=== PATIENT | female | born 1950 | race Caucasian/White ===

== ENCOUNTER 2024-01-01 12:09 | Observation (INO) | payer MEDICARE, SELFPAY ==
[2024-01-01] VITALS (14 sets, daily range): BP systolic 137–213; BP diastolic 72–102; PULSE 74–98; RESP 12–22; TEMP 35.9–37.1; O2SAT 83–99; BMI 34.3; BMI 33.0
--- NOTE | 2024-01-01 12:27 | CT_ITS ---
STUDY: CT BRAIN WITHOUT CONTRAST REASON FOR EXAM: Female, 73 years old. altered mental status RADIATION DOSAGE (If Supplied By Facility): CTDIvol = ( 44.99 ) mGy, DLP = ( 796.11 ) mGycm TECHNIQUE: Transaxial CT imaging of the brain was performed without administration of intravenous contrast material. Individualized dose optimization techniques were used for this CT. COMPARISON: None. FINDINGS: Normal soft tissue structures. Normal calvarium. There is moderate cerebral atrophy with widening of the extra-axial spaces and ventricular dilatation. There are areas of decreased attenuation within the white matter tracts of the supratentorial brain, consistent with microvascular disease changes. Normal basal ganglia and thalami. Normal brainstem. Normal cerebellum. There is no intracranial hemorrhage. There are no findings of an acute ischemic infarction. Normal visualized paranasal sinuses. CT/Brain/Head without Contrast IMPRESSION: Chronic involutional changes of the brain. Electronically Signed: Miguel Hewitt MD at 14:26 EDT ,
--- NOTE | 2024-01-01 12:27 | CT_ITS ---
EXAM: CT ABDOMEN AND PELVIS WITHOUT INTRAVENOUS CONTRAST CLINICAL INDICATION: diffuse abd pain, confused TECHNIQUE: Helically acquired images were obtained of the abdomen and pelvis without intravenous contrast. This CT exam was performed using one or more of the following dose reduction techniques: automated exposure control, adjustment of the mA and/or kV according to patient size, and/or use of iterative reconstruction technique. COMPARISON: No relevant prior studies available. FINDINGS: LOWER THORAX: Normal. Lung bases are clear. No cardiomegaly. No pericardial effusion. ABDOMEN: LIVER: Normal. Homogeneous. GALLBLADDER AND BILE DUCTS: Cholecystectomy clips are in place. PANCREAS: Normal. No focal cystic mass. SPLEEN: Normal. Normal size without focal cystic or solid mass. ADRENALS: Normal. No nodules. KIDNEYS AND URETERS: Normal. No hydronephrosis. STOMACH AND BOWEL: Normal. No bowel distention. No focal inflammatory change. PELVIS: APPENDIX: No evidence of acute appendicitis. BLADDER: Normal. REPRODUCTIVE: Hysterectomy noted. ABDOMEN and PELVIS: INTRAPERITONEAL SPACE: Normal. No ascites or other fluid collection. No free air. BONES/JOINTS: No suspicious lytic or blastic abnormality. SOFT TISSUES: Small fat-containing umbilical hernia is present. VASCULATURE: Normal. Abdominal aorta is non-dilated. LYMPH NODES: Normal. No enlarged lymph nodes. CT/Abdomen/Pelvis without Cont IMPRESSION: No acute abdominal or pelvic abnormality. Electronically Signed: Raman See MD at 14:20 EDT Reading Location ID and State: [facility] / [place] Tel , Service support ,
--- NOTE | 2024-01-01 12:29 | EX.ED.DYSGE1 ---
HPI History of Present Illness Chief Complaint: Alt LOC Informant: patient and EMS Narrative Narrative: 66-year-old female arrives by EMS without any family, unknown identifying information, answers every question with what we assume is her first name, Nazia. She does answer yes that she is in pain to many questions as well although she initially said no when I asked her if she was in pain. Staff states she is very confused. Initially the call went out from a neighbor as possible panic attack which apparently she has had before but we do not know anything else about her right now. She cannot converse but she answers in one-word sentences. When asked about abdominal pain she states yes, when asking about pain in her shoulder as I gently touch it she states yes, when I ask her about pain at the tip of her nose, she states don't. PFSH PFSH Medical History unable to obtain unable to obtain Home Medications buspirone 5 mg tablet 5 mg PO TID 01/01/24 [History Last Taken Unknown] cyclobenzaprine 10 mg tablet 10 mg PO TID 01/01/24 [History Last Taken Unknown] potassium chloride 20 mEq tablet,extended release(part/cryst) (Klor-Con M) 20 meq PO DAILY 01/01/24 [History Last Taken Unknown] pregabalin 200 mg capsule 200 mg PO TID 01/01/24 [History Last Taken Unknown] quetiapine 100 mg tablet 100 mg PO QHS 01/01/24 [History Last Taken Unknown] rivaroxaban 20 mg tablet (Xarelto) 20 mg PO DAILY 01/01/24 [History Last Taken Unknown] venlafaxine 150 mg capsule,extended release 24 hr 150 mg PO DAILY 01/01/24 [History Last Taken Unknown] Allergy/AdvReac Type Severity Reaction Status Date / Time No Known Allergies Allergy Verified 01/01/24 12:21 Social History Smoking Status: Unknown if ever smoked ROS ROS ED Review of Systems ROS Unobtainable: due to mental status EXAM Physical Exam Const Vital Signs: 01/01/24 12:10 01/01/24 12:18 01/01/24 12:27 Temperature 96.6 F L 96.6 F L Temperature Source Temporal Temporal Pulse Rate 98 96 97 Respiratory Rate 22 H 19 H 20 H Blood Pressure 187/102 H 187/102 H 180/87 H Blood Pressure Mean 130 130 118 Pulse Ox 97 96 99 Oxygen Delivery Method Room Air Room Air Room Air 01/01/24 13:18 01/01/24 14:00 01/01/24 14:00 Temperature 97.8 F 98 F Temperature Source Temporal Temporal Pulse Rate 90 96 96 Respiratory Rate 12 20 H 18 Blood Pressure 176/80 H 162/87 H 162/87 H Blood Pressure Mean 112 112 112 Pulse Ox 99 99 99 Oxygen Delivery Method Room Air Room Air Nasal Cannula 01/01/24 15:00 Temperature Temperature Source Pulse Rate 91 Respiratory Rate 16 Blood Pressure 182/94 H Blood Pressure Mean 123 Pulse Ox 98 Oxygen Delivery Method Room Air Positive well nourished, well developed and obese General Appearance ED: well developed and NAD Nutritional Appearance: obese HEENT Reports moist mucous membranes normocephalic and atraumatic Eyes PERRL and EOMs intact bilaterally Neck full ROM and supple Chest Wall inspection of chest normal Resp normal respiratory effort and clear to auscultation bilaterally Cardio regular rate, regular rhythm and no murmurs Rate: Negative for tachycardic GI non-distended GI Narrative: Diffuse tenderness Auscultation: normoactive bowel sounds Palpation: soft Extremity Extremity Narrative: Ecchymosis right hip but no tenderness there. Tender at the left hip greater trochanter. Painful internal and external passive rotation of the left hip. No deformity or shortening. Able to move it on her own actively all joints all 4 extremities including the left hip. Pelvis stable to AP compression. No other major signs of trauma. General Extremety ED: Yes tenderness; Negative for edema or pulses abnormal General Extremity: Negative for edema or pulses abnormal Neuro CN's II-XII intact bilaterally and no sensory deficits noted Neuro Narrative: Inappropriate answers speaking in one-word sentences, ? expressive aphasia. Moving all 4 extremities equally, she can hold them up some with generalized symmetric weakness. Sensorium / Orientation: awake, alert and orientation impaired Motor Exam: strength 5/5 throughout Skin no rashes or lesions noted and no wounds NIHSS NIHSS Initial: 1a Level of Consciousness: 0 1b LOC Questions (Score 2 if aphasic/stupor): 2 1c LOC Commands (Only score 1st attempt): 0 2 Best Gaze (If aphasic, use reflexive mvmts.): 0 3 Visual: 0 4 Facial Palsy: 0 5 Motor Arm Right (UN = amputation/fusion): 1 5 Motor Arm Left: 1 6 Motor Leg Right: 1 6 Motor Leg Left: 1 7 Limb ataxia (Only + if out of proportion): 0 8 Sensory (Aphasia/stupor=0 or 1, coma=2): 0 9 Best Language: 2 10 Dysarthria (mute, coma=2, intubated=UN): 0 11 Extinction and Inattention (only scored if +): 0 Total Score: 8 MDM MDM MDM Narrative Medical decision making narrative: The patient was made a Aleksandra Childers initially until we found out who she was. We then were able to determine that she was recently admitted to the hospital and was discharged 4 days ago or so. We are not able to merge her medical records so I had to look this up using her other medical record. In doing this, it was determined that she physically was admitted to the ICU due to overflow although she was not a critical care patient, admitted for pneumonia and hypoxemia, asthmatic bronchitis, and the nurse who was caring for her is working today. She came to the ER and saw the patient and indicates that this is very different mental status than she had a couple days ago. ABG was the first lab results are returned, is basically consistent with a an acute respiratory alkalosis consistent with hyperventilation. Her lungs are clear so I do not think she needs a nebulizer treatment right now, doing so may make her more anxious and exacerbate the imbalance. Patient's workup is largely unremarkable. Patient has a wide differential for this issue. She seems encephalopathic but keeps complaining of abdominal pain. [employer] issues, intra-abdominal issues not excluding mesenteric ischemia, infections, metabolic derangement. Other than hypokalemia she has no other evidence of a metabolic derangement or anion gap elevation. The hypokalemia could be due to acute respiratory alkalosis and resultant shift. I will have this repeated at some point. Her blood pressure was significantly high, certainly considering some type of possible acute [employer] insult, however on repeat without treating it it is 162/87 which is more reassuring. CT of the head images are reviewed as well as the result which I agree with, it is negative for any acute. CT images of the abdomen/pelvis I reviewed and the results which I agree with, it is negative for any acute. I did this noncontrast in order to get a quick scan without having to wait for renal function to return. Chest x-ray 1 view on my interpretation shows no signs of pneumonia, urinalysis shows no sign of acute infection just starvation ketosis, and a toxicology screen is positive only for methadone which she is on. I do not think her being on a lower dose than normal which was determined to be 20, she is currently on 10 to be discharged from the hospital, would do this, but may explain why she is in more diffuse pain. History & Record Review Additional record(s) reviewed:: Prior inpatient record and Prior ED visit Lab Data Attestation: I reviewed the patient's lab results. Labs: Laboratory Results - last 24 hr 01/01/24 01/01/24 12:45 12:55 WBC 6.8 RBC 4.53 Hgb 11.4 L Hct 35.2 L MCV 77.7 L MCH 25.2 L MCHC 32.4 RDW Std Deviation 44.7 H RDW Coeff of Manuel 16.1 H Plt Count 233 MPV 12.9 H Immature Gran % (Auto) 1.300 H Neut % (Auto) 71.4 H Lymph % (Auto) 18.8 L Chester % (Auto) 8.1 Eos % (Auto) 0.1 Baso % (Auto) 0.3 Absolute Neuts (auto) 4.9 Absolute Lymphs (auto) 1.28 Nucleated RBC % 0 Sodium 140 Potassium 3.0 L Chloride 106 Carbon Dioxide 22.0 Anion Gap 12 BUN 16 Creatinine 0.79 Estim Creat Clear Calc 69.34 Est GFR (MDRD) Af Amer 92 Est GFR (MDRD) Non-Af 76 BUN/Creatinine Ratio 20.3 H Glucose 123 H Lactic Acid 1.3 Calcium 8.8 Total Bilirubin 0.80 AST 24 ALT 31 Alkaline Phosphatase 201 H Troponin I High Sens 13 Total Protein 6.6 Albumin 3.2 Globulin 3.4 Albumin/Globulin Ratio 0.9 Lipase 31 Urine Color Yellow Urine Clarity Sl. Cloudy Urine pH 6.5 Ur Specific Foster 1.015 Urine Protein 30 H Urine Glucose (UA) Normal Urine Ketones 150 A* Urine Occult Blood Negative Urine Nitrite Negative Urine Bilirubin Negative Urine Urobilinogen 1 H Ur Leukocyte Esterase Negative Urine RBC 0 SEEN Urine WBC 0 SEEN Ur Squamous Epith Cells 0-5 SEEN Urine Bacteria 0 SEEN Urine Mucus 0 SEEN Urine Opiates Screen NEGATIVE Urine Methadone Screen POSITIVE H Ur Barbiturates Screen NEGATIVE Ur Phencyclidine Scrn NEGATIVE Ur Amphetamines Screen NEGATIVE MDMA (Ecstasy) Screen NEGATIVE U Benzodiazepines Scrn NEGATIVE Urine Cocaine Screen NEGATIVE U Cannabinoids Screen NEGATIVE Ur Drug Screen Comment Ethyl Alcohol 4.0 ABG Data ABG results: ABG 01/01/24 12:49 Specimen Type ART Sample Site L Radial pH 7.66 H* Bicarbonate Actual 20.8 L Total CO2 21 Base Excess 0 O2 Saturation 99 ABG pCO2 18.6 L* ABG pO2 85 O2 Delivery Device Room Air Vent Mode Not entered Crit Call To/Read Back Yes Blood Gas Notified Whom bb Blood Gas Notified Time 12:51:15 Radiography Diagnostic Testing: Clinical Impression(s) from Imaging Studies Abdomen/Pelvis CT 01/01/24 12:27 IMPRESSION: No acute abdominal or pelvic abnormality. Electronically Signed: Raman See MD at 14:20 EDT , Brain CT 01/01/24 12:27 IMPRESSION: Chronic involutional changes of the brain. Electronically Signed: Miguel Hewitt MD at 14:26 EDT , Chest X-Ray 01/01/24 13:44 IMPRESSION: No acute process Electronically Signed: Miguel Hewitt MD at 14:11 EDT , Hip/Pelvis X-Ray 01/01/24 13:44 IMPRESSION: 1. No demonstrated fracture of the pelvis and bilateral hips. Electronically Signed: Miguel Hewitt MD at 14:25 EDT , Rhythm Strip Rhythm Strip: Sinus Rhythm Rate: 95 Ectopy: None EKG Initial EKG: Attestation: I personally reviewed and interpreted this EKG as follows: Interpretation: Sinus Rhythm and No Acute Injury Pattern Discharge Plan Triage Chief Complaint: Alt LOC ED Provider: Ancelmo Silverio Dx/Rx/DC Orders Clinical Impression: Diffuse pain, Acute encephalopathy, Acute hypokalemia Prescriptions: No Action cyclobenzaprine 10 mg tablet 10 mg PO TID venlafaxine 150 mg capsule,extended release 24hr 150 mg PO DAILY quetiapine 100 mg tablet 100 mg PO QHS pregabalin 200 mg capsule 200 mg PO TID buspirone 5 mg tablet 5 mg PO TID Xarelto 20 mg tablet 20 mg PO DAILY Rx Instructions: must administer with evening meal potassium chloride [Klor-Con M20] 20 mEq tablet,ER particles/crystals 20 meq PO DAILY Primary Care Provider: Claire Christian Referrals: Claire Chritsian, [facility] [Primary Care Provider] - Disposition Disposition: Acute Care Hospital [facility] Stroke Documentation Questions Stroke Team Activated: No (Nonlateralizing neurologic symptoms, not initially thought to be acute CVA) IV Thrombolytic Administered: No (Last known well unknown)
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
[2024-01-01 12:54] LABS: Base Excess 0 mmol/L (-2 to +2); Bicarbonate 20.8 mmol/L (22-26); Blood Gas Specimen Type ART; Mode Not entered; O2 Delivery Device Room Air; PO2 85 mmHG (75-100); SITE L Radial; SO2 99 % (95-99); Time Given 12:51:15; Total Carbon Dioxide 21 mmol/L; pCO2 18.6 mmHg (35-45); pH 7.66 (7.35-7.45)
[2024-01-01 13:02] LABS: Absolute Lymphocyte Count 1.28 X10^3/uL (0.83-4.51); Absolute Neutrophil Count 4.9 X10^3/uL (2.0-7.7); Basophil# 0.02 X10^3/uL; Basophil% 0.3 % (0-1); Eosinophil# 0.01 X10^3/uL; Eosinophils% 0.1 % (0-5); Hematocrit 35.2 % (37-47); Hemoglobin 11.4 g/dL (12.0-15.0); Lymphocyte # 1.28 X10^3/ul (0.83-4.51); Lymphocyte % 18.8 % (19-41); Mean Corp Hgb Conc 32.4 g/dL (32-36); Mean Corpuscular Hgb 25.2 pg (27.0-32.0); Mean Corpuscular Volume 77.7 fL (81-99); Mean Platelet Vol. 12.9 fl (6.2-12.0); Monocyte# 0.55 X10^3/uL; Monocyte% 8.1 % (0-10); NRBC Flagged by Analyzer 0 % (0-5); Neutrophil # 4.86 X10^3/uL (2.7-7.7); Neutrophil % 71.4 % (47-70); Platelet Count 233 K/mm3 (150-450); RBC Distribution Width CV 16.1 % (11.6-14.6); RBC Distribution Width SD 44.7 fl (35.1-43.9); Red Blood Count 4.53 M/mm3 (4.2-5.4); White Blood Count 6.8 K/mm3 (4.4-11.0)
[2024-01-01 13:03] LABS: Bacteria 0 SEEN /hpf (None Seen); Mucous, Urine 0 SEEN /hpf (<or=2+); Red Blood Cells-Urine 0 SEEN /hpf (0-5); White Blood Cells 0 SEEN /hpf (0-5)
[2024-01-01 13:08] LABS: Color, Urine Yellow (Yellow); Glucose, Dipstick Normal (Normal); Leukocyte Esterase-Dipstick Negative /ul (Negative); Nitrite-Dipstick Negative (Negative); Occult Blood-Urine Negative /ul (Negative); Protein-Dipstick 30 mg/dl (Negative); Specific Gravity, Urine 1.015 (1.002-1.030); Urine Bilirubin Dipstick Negative (Negative); Urine Clarity Sl. Cloudy (Clear); Urine Urobilinogen 1 mg/dl (Normal); Urine pH 6.5 (5.0 - 8.0)
[2024-01-01 13:13] LABS: Ketone-Dipstick 150 mg/dl (Negative)
[2024-01-01 13:15] LABS: Amphetamine Urine VISTA NEGATIVE (<1000 ng/mL); Barbiturate Urine VISTA NEGATIVE (< 200 ng/mL); Benzodiazepine Urine VISTA NEGATIVE (< 200 ng/mL); Cocaine Urine VISTA NEGATIVE (< 300 ng/mL); Ecstacy Urine VISTA NEGATIVE (< 500 ng/mL); Methadone Urine VISTA POSITIVE (< 300 ng/mL); PCP Urine VISTA NEGATIVE (< 25 ng/mL); THC Urine VISTA NEGATIVE (< 50 ng/mL); Vista UDS pH Range 6
[2024-01-01 13:18] LABS: ALB/GLOB Ratio 0.9 RATIO (0.9-2.4); AST(SGOT) 24 U/L (15-37); Alanine Aminotransfer ALT/SGPT 31 U/L (13-56); Albumin, Serum 3.2 g/dL (3.2-5.0); Alkaline Phosphatase 201 U/L (45-117); Anion Gap 12 (5-15); BUN 16 mg/dL (7-18); BUN/Creat Ratio 20.3 RATIO (10-20); Calcium,Total 8.8 mg/dL (8.5-10.1); Chloride 106 mmol/L (98-107); Creatinine, Serum 0.79 mg/dL (0.55-1.02); EST Glomerular Filtration Rate 76 mL/min (>60); Est Glom Filt Rate - Afr Amer 92 mL/min (>60); Estimated Creatinine Clearance 69.34 ml/min; Globulin 3.4 g/dL (2.2-4.2); Glucose 123 mg/dL (74-106); Lipase 31 U/L (13-75); Protein, Total 6.6 g/dL (6.4-8.2); Sodium Level 140 mmol/L (136-145); Troponin-I HS 13 pg/mL (3.0-54.0)
[2024-01-01 13:20] LABS: Squamous Epithelial Cells - UA 0-5 SEEN /hpf (5-10)
[2024-01-01 13:21] LABS: Lactic Acid 1.3 mmol/L (0.4-1.9)
--- NOTE | 2024-01-01 13:44 | RAD_ITS ---
STUDY: X-RAY CHEST REASON FOR EXAM: Female, 73 years old. sob TECHNIQUE: Single AP portable view of the chest. COMPARISON: December 28, 2023 FINDINGS: 1. Stable right chest port and catheter 2. No demonstrated consolidation or infiltrates 3. Chronic interstitial thickening and scarring of both lungs 4. No pleural effusion 5. Top normal heart size 6. Stable mediastinum and osseous structures. There is no demonstrated abnormality of the visualized soft tissue structures of the upper abdomen. RAD/Chest 1 View (Portable) IMPRESSION: No acute process Electronically Signed: Miguel Hewitt MD at 14:11 EDT ,
--- NOTE | 2024-01-01 13:44 | RAD_ITS ---
STUDY: X-RAY - PELVIS AND BILATERAL HIPS REASON FOR EXAM: Female, 73 years old. pain, ? fall TECHNIQUE: 6 total images AP view of the pelvis.? 2 views of the right hip, and 2 views of the left hip were obtained. COMPARISON: CT of abdomen and pelvis dated January 01, 2024 FINDINGS: There is a non-specific bowel gas pattern. Normal visualized soft tissue structures. No visualized acute fracture or displaced bony fragments. Normal bilateral iliac wings, sacroiliac joints and visualized sacrum. Normal bilateral superior and inferior pubic rami. Normal pubic symphysis. Normal bilateral ischial tuberosities. Normal visualized right femoral head. Normal right acetabulum. There is mild articular joint space narrowing of the right hip. Normal visualized left femoral head. Normal left acetabulum. There is mild articular joint space narrowing of the left hip. RAD/Hips B/L min 2 views w/ Pelvis IMPRESSION: 1. No demonstrated fracture of the pelvis and bilateral hips. Electronically Signed: Miguel Hewitt MD at 14:25 EDT ,
--- NOTE | 2024-01-01 14:11 | ED.RN ---
PT CARLA. COMPLAINS OF 10 OUT OF [address] ASHRAF. ORDERS RECIEVED
[2024-01-01] MEDS: fentaNYL 100 MCG/2 ML Ampul 50 MCG IV (14:12)
--- NOTE | 2024-01-01 15:21 | HP.PCM.HOS_ITS ---
HPI - General General Date of Admission: 01/01/24 Date of Service: 01/01/24 Chief Complaint: Altered mental status. HPI Narrative RICHARDSON CRUM, is a 73 F with a past medical history of obesity; with a BMI of 34.3 this admission, depression with anxiety, RLS, history of X; on Xarelto, history of cirrhosis, osteoarthritis; on chronic methadone and recent admission here approximately 5 days ago for treatment of pneumonia who presents to [facility] ER with altered mental status. Ms. Crum is not a reliable historian at this time so information was gathered from chart, medical staff and computer. According to the records the patient was found outside today confused by one of her neighbors who then activated EMS because she was not acting like herself. The patient can only speak in one-word sentences and when asked any questions she answers with Nazia. She does answer yes to the being in pain but she is having difficulty communicating exactly what the pain is coming from. There is no report of fever, chills, nausea or vomiting but a nurse that saw her during her last admission here 1 week ago says she is markedly different from her baseline mental status with the ER physician concern for possible TIA/C VA. In the ER she was noted to have an elevated initial blood pressure of 187/102 mmHg along with suspected mild expressive dysarthric speech complicated by urine drug screen positive only for methadone but with patient not lateralizing and moving all 4 extremities along with metabolic alkalosis with pH of 7.66/pCO2 18.6/pO2 85/bicarbonate 20.8 on RA present on admission and hypokalemia of 3 mmol/L present on admission and she was then admitted to the CDU under observation status for ongoing care for stay that is expected to be less than 48 hours. [facility] Medical History Cirrhosis Migraines Medical History unable to obtain Home Medications buspirone 5 mg tablet 5 mg PO TID 01/01/24 [History Last Taken Unknown] cyclobenzaprine 10 mg tablet 10 mg PO TID 01/01/24 [History Last Taken Unknown] potassium chloride 20 mEq tablet,extended release(part/cryst) (Klor-Con M) 20 meq PO DAILY 01/01/24 [History Last Taken Unknown] pregabalin 200 mg capsule 200 mg PO TID 01/01/24 [History Last Taken Unknown] quetiapine 100 mg tablet 100 mg PO QHS 01/01/24 [History Last Taken Unknown] rivaroxaban 20 mg tablet (Xarelto) 20 mg PO DAILY 01/01/24 [History Last Taken Unknown] venlafaxine 150 mg capsule,extended release 24 hr 150 mg PO DAILY 01/01/24 [History Last Taken Unknown] Allergy/AdvReac Type Severity Reaction Status Date / Time No Known Allergies Allergy Verified 01/01/24 12:21 Social History housing: apartment Smoking Status: Never smoker ROS ROS Narrative Full review of systems cannot be completed at this time due to patient confusion as noted above in HPI. Vital Signs Vital Signs Vital Signs: 01/01/24 12:10 01/01/24 12:18 01/01/24 12:27 Temperature 96.6 F L 96.6 F L Temperature Source Temporal Temporal Pulse Rate 98 96 97 Respiratory Rate 22 H 19 H 20 H Blood Pressure 187/102 H 187/102 H 180/87 H Blood Pressure Mean 130 130 118 Pulse Ox 97 96 99 Oxygen Delivery Method Room Air Room Air Room Air 01/01/24 13:18 01/01/24 14:00 01/01/24 14:00 Temperature 97.8 F 98 F Temperature Source Temporal Temporal Pulse Rate 90 96 96 Respiratory Rate 12 20 H 18 Blood Pressure 176/80 H 162/87 H 162/87 H Blood Pressure Mean 112 112 112 Pulse Ox 99 99 99 Oxygen Delivery Method Room Air Room Air Nasal Cannula 01/01/24 15:00 Temperature Temperature Source Pulse Rate 91 Respiratory Rate 16 Blood Pressure 182/94 H Blood Pressure Mean 123 Pulse Ox 98 Oxygen Delivery Method Room Air Weight Weight: 199 lb 15.348 oz Body Mass Index (BMI) 34.3 Physical Exam Const alert Constitutional Narrative: Obese and confused. Orientation / Consciousness: confused and disoriented HEENT normocephalic, head/scalp atraumatic and hearing grossly normal bilaterally HEENT Narrative: Mucous membranes dry. Eyes PERRL and EOMs intact bilaterally Neck no lymphadenopathy and supple Resp normal respiratory effort, no retractions, no use of accessory muscles and clear to auscultation bilaterally Cardio regular rate and regular rhythm GI normal to inspection, nondistended, normoactive bowel sounds, soft to palpation, non-tender and non-distended Extremity normal to inspection and full ROM Skin Skin Narrative: Patient has no evidence of jaundice or rash. Neuro CN's II-XII intact bilaterally and moves all extremities Sensorium / Orientation: awake, alert and oriented to person Motor Exam: strength 5/5 throughout Psych Mood & Affect: anxious Results Medical Records Data Attestation: I reviewed the patient's medical records Lab / Micro Data Attestation: I reviewed the patient's lab results. 01/01/24 12:45 01/01/24 16:00 Labs: Laboratory Results - last 24 hr 01/01/24 12:45: WBC 6.8, RBC 4.53, Hgb 11.4 L, Hct 35.2 L, MCV 77.7 L, MCH 25.2 L, MCHC 32.4, RDW Std Deviation 44.7 H, RDW Coeff of Manuel 16.1 H, Plt Count 233, MPV 12.9 H, Immature Gran % (Auto) 1.300 H, Neut % (Auto) 71.4 H, Lymph % (Auto) 18.8 L, [place] % (Auto) 8.1, Eos % (Auto) 0.1, Baso % (Auto) 0.3, Absolute Neuts (auto) 4.9, Absolute Lymphs (auto) 1.28, Nucleated RBC % 0, Sodium 140, Potassium 3.0 L, Chloride 106, Carbon Dioxide 22.0, Anion Gap 12, BUN 16, Creatinine 0.79, Estim Creat Clear Calc 69.34, Est GFR (MDRD) Af Amer 92, Est GFR (MDRD) Non-Af 76, BUN/Creatinine Ratio 20.3 H, Glucose 123 H, Lactic Acid 1.3, Calcium 8.8, Total Bilirubin 0.80, AST 24, ALT 31, Alkaline Phosphatase 201 H, Troponin I High Sens 13, Total Protein 6.6, Albumin 3.2, Globulin 3.4, Albumin/Globulin Ratio 0.9, Lipase 31, Ethyl Alcohol 4.0 01/01/24 12:55: Urine Color Yellow, Urine Clarity Sl. Cloudy, Urine pH 6.5, Ur Specific [place] 1.015, Urine Protein 30 H, Urine Glucose (UA) Normal, Urine Ketones 150 A*, Urine Occult Blood Negative, Urine Nitrite Negative, Urine Bilirubin Negative, Urine Urobilinogen 1 H, Ur Leukocyte Esterase Negative, Urine RBC 0 SEEN, Urine WBC 0 SEEN, Ur Squamous Epith Cells 0-5 SEEN, Urine Bacteria 0 SEEN, Urine Mucus 0 SEEN, Urine Opiates Screen NEGATIVE, Urine Methadone Screen POSITIVE H, Ur Barbiturates Screen NEGATIVE, Ur Phencyclidine Scrn NEGATIVE, Ur Amphetamines Screen NEGATIVE, MDMA (Ecstasy) Screen NEGATIVE, U Benzodiazepines Scrn NEGATIVE, Urine Cocaine Screen NEGATIVE, U Cannabinoids Screen NEGATIVE, Ur Drug Screen Comment ABG Data ABG results: ABG 01/01/24 12:49 Specimen Type ART Sample Site L Radial pH 7.66 H* Bicarbonate Actual 20.8 L Total CO2 21 Base Excess 0 O2 Saturation 99 ABG pCO2 18.6 L* ABG pO2 85 O2 Delivery Device Room Air Vent Mode Not entered Crit Call To/Read Back Yes Blood Gas Notified Whom bb Blood Gas Notified Time 12:51:15 Rhythm Strip Rhythm Strip: Sinus Rhythm Rate: 95 Ectopy: None Imaging Radiology Impression Abdomen/Pelvis CT 01/01/24 12:27 IMPRESSION: No acute abdominal or pelvic abnormality. Electronically Signed: Raman See MD at 14:20 EDT , Brain CT 01/01/24 12:27 IMPRESSION: Chronic involutional changes of the brain. Electronically Signed: Miguel Hewitt MD at 14:26 EDT , Chest X-Ray 01/01/24 13:44 IMPRESSION: No acute process Electronically Signed: Miguel Hewitt MD at 14:11 EDT , Hip/Pelvis X-Ray 01/01/24 13:44 IMPRESSION: 1. No demonstrated fracture of the pelvis and bilateral hips. Electronically Signed: Miguel Hewitt MD at 14:25 EDT , Assessment & Plan Assessment/Plan (1) Acute encephalopathy: (2) TIA (transient ischemic attack): (3) Acute hypokalemia: (4) Respiratory alkalosis: PLAN: Plan 1. Suspected TIA versus CVA with persistent altered mental status, elevated blood pressure and mildly dysarthric speech - Admit to CDU under observation status. Give enteric-coated aspirin plus statin and allow for permissive hypertension until CVA is definitively ruled out on MRI. Check echocardiogram to evaluate LVEF. Check carotid Doppler to evaluate for stenosis. Check MRI of brain to confirm suspicion of CVA. Check lipid profile and hemoglobin A1c. Finally, we will consult [facility] to see patient this admission with help appreciated in advance. 2. 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 Check TSH, B12 and folate level to evaluate for potential reversible causes of confusion. 3. Respiratory alkalosis with pH of 7.66/pCO2 18.6/pO2 85/bicarbonate 20.8 on RA present on admission compounding #1 & #2 - Continue conservative treatment and recheck ABG to confirm findings. 4. Hypokalemia of 3 mmol/L present on admission adding to the pathology of #1 - #3 - Give supplemental potassium chloride and recheck level in a.m. to ensure improvement. 5. History of X; on Xarelto heightening concern for possible TIA versus CVA outlined in #1 - Resume Xarelto as previous with no blood evident on initial CT. 6. Recent admission here for treatment of pneumonia approximately 5 days ago - Noted. 7. Obesity; with a BMI of 34.3 this admission - Weight loss will be recommen ded. Check TSH in light of #1. 8. 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 Then consider restarting at decreased doses. 9. RLS - Resume Requip as previous. 10. History of cirrhosis - Noted. Check serum ammonia level. 11. DVT prophylaxis - Patient on Xarelto for #5 which will be continued. Total time: Approximately 75 minutes. Charges/Coding Visit Charges Inpatient E&M: 06792 Init Hosp L3
--- NOTE | 2024-01-01 15:45 | CDU_ITS ---
Reason For Study: Evaluate for Stenosis Rt. Velocities/BP Lt. Velocities/BP Prox CCA 75/18 cm/sec. Prox CCA 109/19 cm/sec. Mid CCA 86/20 cm/sec. Mid CCA 81/14 cm/sec. Dist CCA 83/21 cm/sec. Dist CCA 84/19 cm/sec. Prox ICA 72/17 cm/sec. Prox ICA 81/7 cm/sec. Mid ICA 93/20 cm/sec. Mid ICA 83/19 cm/sec. Dist ICA 74/19 cm/sec. Dist ICA 66/19 cm/sec. Rt. ICA/CCA = 1.1. Lt. ICA/CCA = 1.0. Prox ECA 111/13 cm/sec. Prox ECA 91/14 cm/sec. Rt. Vert. 58/10 cm/sec. Lt. Vert. 60/12 cm/sec. Right Extracranial There is intimal thickening but no significant atherosclerotic plaque noted in the right common carotid artery. There is intimal thickening but no significant atherosclerotic plaque noted in the right internal carotid artery. There is no significant atherosclerotic plaque noted in the right external carotid artery. Antegrade flow is noted in the right vertebral artery. Left Extracranial There is intimal thickening but no significant atherosclerotic plaque noted in the left common carotid artery. There is intimal thickening but no significant atherosclerotic plaque noted in the left internal carotid artery. There is no significant atherosclerotic plaque noted in the left external carotid artery. Antegrade flow is noted in the left vertebral artery. Procedure Carotid Duplex [id number]. This is a Carotid Duplex examination using B-mode, color flow and specral Doppler. Exam performed portable in patient room. VL/Carotid Duplex Ultrasound Interpretation Summary Normal right extracranial internal carotid. Normal left extracranial internal carotid. Patent and antegrade vertebrals bilaterally. Ordering Physician: Sukhdev Bianchi Referring Physician: Claire Christian Performed By: Eryn Kern, VIDAL, RVT
[2024-01-01 16:22] LABS: Potassium 3.1 mmol/L (3.5-5.1)
[2024-01-01 16:29] LABS: Hemoglobin A1c 5.5 % (3.8-5.6)
[2024-01-01 16:35] LABS: Thyroid Stim Hormone (TSH) 0.33 uIU/mL (0.358-3.74)
[2024-01-01] MEDS: KCL 20MEQ in 0.9% NS 20 MEQ/1,000 ML IV.SOLN. 50 MEQ IV (17:47)
[2024-01-01] MEDS: Ondansetron 4 MG/2 ML Vial IV ×2 (17:57→23:27)
[2024-01-01 19:54] LABS: Phosphorus 1.3 mg/dL (2.5-4.9)
[2024-01-01 21:08] LABS: Blood Gas Specimen Type VEN; O2 Delivery Device Room Air; SITE Not entered; VBG BASE EXCESS -3 mmol/L (-1.0-3.5); VBG Bicarbonate 21 mmol/L (22-26); VBG PO2 52 mmHg (25-40); VBG SO2 89 % (50-70); VBG TCO2 22 mmol/L (23-33); VBG pCO2 29.5 mmHg (41-51); VBG pH 7.45 (7.32-7.42)
[2024-01-01] MEDS: Potassium Chloride Oral Tablet 20 MEQ 40 MEQ PO (21:19)
[2024-01-01] MEDS: Rivaroxaban 20 MG Tablet PO (21:19)
[2024-01-01] MEDS: QUEtiapine 100 MG Tablet PO (21:19)
[2024-01-01] MEDS: Pregabalin 50 MG Capsule 200 MG PO (21:21)
[2024-01-01] MEDS: Atorvastatin Calcium 40 MG Tablet PO (21:21)
[2024-01-01] MEDS: 0.9% Saline Lock 10 ML Syringe IV (21:29)
[2024-01-01 21:31] LABS: Ammonia < 10.0 umol/L (11-32)
[2024-01-01] MEDS: 0.9 % NaCl (Sterile) Posiflush 10 mL IV ×2 (22:01→23:27)
[2024-01-01] MEDS: LORazepam 2 MG/ML Syringe 0.5 MG IV (22:01)
[2024-01-01] MEDS: cycloBENZAPRine HCl 10 MG Tablet PO (22:23)
[2024-01-01] MEDS: busPIRone 5 MG Tablet PO (22:23)
[2024-01-01 22:56] LABS: Bedside Glucose 109 mg/dL (74-106)
[2024-01-02] VITALS (10 sets, daily range): BP systolic 95–134; BP diastolic 52–72; PULSE 75–102; RESP 14–18; TEMP 36.2–37.1; O2SAT 93–97; BMI 33.0
[2024-01-02 03:35] LABS: Absolute Lymphocyte Count 1.78 X10^3/uL (0.83-4.51); Absolute Neutrophil Count 3.9 X10^3/uL (2.0-7.7); Basophil# 0.03 X10^3/uL; Basophil% 0.5 % (0-1); Eosinophil# 0.04 X10^3/uL; Eosinophils% 0.6 % (0-5); Hematocrit 32.4 % (37-47); Lymphocyte # 1.78 X10^3/ul (0.83-4.51); Lymphocyte % 27.1 % (19-41); Mean Corp Hgb Conc 30.9 g/dL (32-36); Mean Corpuscular Hgb 24.5 pg (27.0-32.0); Mean Corpuscular Volume 79.4 fL (81-99); Mean Platelet Vol. 12.2 fl (6.2-12.0); Monocyte# 0.77 X10^3/uL; Monocyte% 11.7 % (0-10); NRBC Flagged by Analyzer 0 % (0-5); Neutrophil # 3.89 X10^3/uL (2.7-7.7); Platelet Count 221 K/mm3 (150-450); RBC Distribution Width CV 16.4 % (11.6-14.6); RBC Distribution Width SD 46.6 fl (35.1-43.9); Red Blood Count 4.08 M/mm3 (4.2-5.4); White Blood Count 6.6 K/mm3 (4.4-11.0)
[2024-01-02 04:38] LABS: ALB/GLOB Ratio 0.9 RATIO (0.9-2.4); AST(SGOT) 22 U/L (15-37); Alanine Aminotransfer ALT/SGPT 25 U/L (13-56); Albumin, Serum 2.6 g/dL (3.2-5.0); Alkaline Phosphatase 166 U/L (45-117); Anion Gap 7 (5-15); BUN 16 mg/dL (7-18); BUN/Creat Ratio 22.1 RATIO (10-20); Calcium,Total 8.3 mg/dL (8.5-10.1); Chloride 112 mmol/L (98-107); Cholesterol 157 mg/dL (200); Creatinine, Serum 0.72 mg/dL (0.55-1.02); EST Glomerular Filtration Rate 84 mL/min (>60); Est Glom Filt Rate - Afr Amer 102 mL/min (>60); Globulin 2.9 g/dL (2.2-4.2); Glucose 96 mg/dL (74-106); High Density Lipoprotein 55 mg/dL; Phosphorus 3.4 mg/dL (2.5-4.9); Potassium 3.9 mmol/L (3.5-5.1); Protein, Total 5.5 g/dL (6.4-8.2); Sodium Level 142 mmol/L (136-145); Triglycerides 72 mg/dL; Very Low Density Lipoprotein 14 mg/dL (5-40)
[2024-01-02] MEDS: cycloBENZAPRine HCl 10 MG Tablet PO ×3 (06:06→20:21)
[2024-01-02] MEDS: busPIRone 5 MG Tablet PO ×3 (06:06→20:21)
[2024-01-02] MEDS: Pregabalin 50 MG Capsule 200 MG PO ×3 (06:08→20:25)
[2024-01-02] MEDS: 0.9 % NaCl (Sterile) Posiflush 10 mL IV (06:09)
[2024-01-02 08:17] LABS: Vitamin B12 221 pg/mL (211-911)
[2024-01-02] MEDS: Venlafaxine XR 150 MG Capsule PO (09:25)
[2024-01-02] MEDS: Potassium Chloride Oral Tablet 20 MEQ 40 MEQ PO (09:25)
--- NOTE | 2024-01-02 11:40 | STROKE.CONS ---
Assessment and Plan: Stroke Assessment/Plan RICHARDSON CRUM is a 73 F with a history of obesity depression with anxiety, RLS, history of X; on Xarelto, history of cirrhosis, osteoarthritis; on chronic methadone and recent admission here approximately 5 days ago for treatment of pneumonia who presents to [facility] ER with altered mental status. she reports being confused for few days.Her BP was high upon presentation. She is getting better. Denies focal symptoms. Not a TNK or thrombectomy candidate. Neurological examination shows intact examination Neuroimaging shows No acute stroke per my review (formal report pending). Suspect most likely encephalopathy from hypertension vs other causes than TIA/CVA. Plan Follow up formal MRI read Continue xarelto Aim normal blood pressure Aggressive supportive care. Thanks for the consult. I spent 75 min in evaluation and management. HPI Consult Data Date of Consult: 01/02/24 HPI Narrative HPI Narrative: RICHARDSON CRUM, is a 73 F with a past medical history of obesity; with a BMI of 34.3 this admission, depression with anxiety, RLS, history of X; on Xarelto, history of cirrhosis, osteoarthritis; on chronic methadone and recent admission here approximately 5 days ago for treatment of pneumonia who presents to [facility] ER with altered mental status. . According to the records the patient was found outside today confused by one of her neighbors who then activated EMS because she was not acting like herself. The patient can only speak in one-word sentences and when asked any questions she answers with Nazia. She does answer yes to the being in pain but she is having difficulty communicating exactly what the pain is coming from. There is no report of fever, chills, nausea or vomiting but a nurse that saw her during her last admission here 1 week ago says she is markedly different from her baseline mental status with the ER physician concern for possible TIA/CVA. In the ER she was noted to have an elevated initial blood pressure of 187/102 mmHg along with suspected mild expressive dysarthric speech complicated by urine drug screen positive only for methadone but with patient not lateralizing and moving all 4 extremities along with metabolic alkalosis with pH of 7.66/pCO2 18.6/pO2 85/bicarbonate 20.8 on RA present on admission and hypokalemia of 3 mmol/L present on admission and she was then admitted to the CDU under observation status for ongoing care for stay that is expected to be less than 48 hours. [facility] Medical History Cirrhosis Migraines Medical History unable to obtain Home Medications buspirone 5 mg tablet 5 mg PO TID 01/01/24 [History Last Taken Unknown] cyclobenzaprine 10 mg tablet 10 mg PO TID 01/01/24 [History Last Taken Unknown] potassium chloride 20 mEq tablet,extended release(part/cryst) (Klor-Con M) 20 meq PO DAILY 01/01/24 [History Last Taken Unknown] pregabalin 200 mg capsule 200 mg PO TID 01/01/24 [History Last Taken Unknown] quetiapine 100 mg tablet 100 mg PO QHS 01/01/24 [History Last Taken Unknown] rivaroxaban 20 mg tablet (Xarelto) 20 mg PO DAILY 01/01/24 [History Last Taken Unknown] venlafaxine 150 mg capsule,extended release 24 hr 150 mg PO DAILY 01/01/24 [History Last Taken Unknown] Allergy/AdvReac Type Severity Reaction Status Date / Time No Known Allergies Allergy Verified 01/01/24 12:21 Social History housing: apartment Smoking Status: Never smoker Vital Signs Vital Signs Vital Signs: 01/01/24 12:10 01/01/24 12:18 01/01/24 12:27 Temperature 96.6 F L 96.6 F L Temperature Source Temporal Temporal Pulse Rate 98 96 97 Pulse Strength Respiratory Rate 22 H 19 H 20 H Respiratory Effort Respiratory Depth Respiratory Pattern Blood Pressure 187/102 H 187/102 H 180/87 H Blood Pressure Mean 130 130 118 Blood Pressure Source Blood Pressure Position Blood Pressure Location Pulse Ox 97 96 99 Oxygen Delivery Method Room Air Room Air Room Air Oxygen Flow Rate (L/min) 01/01/24 13:18 01/01/24 14:00 01/01/24 14:00 Temperature 97.8 F 98 F Temperature Source Temporal Temporal Pulse Rate 90 96 96 Pulse Strength Respiratory Rate 12 20 H 18 Respiratory Effort Respiratory Depth Respiratory Pattern Blood Pressure 176/80 H 162/87 H 162/87 H Blood Pressure Mean 112 112 112 Blood Pressure Source Blood Pressure Position Blood Pressure Location Pulse Ox 99 99 99 Oxygen Delivery Method Room Air Room Air Nasal Cannula Oxygen Flow Rate (L/min) 01/01/24 15:00 01/01/24 16:00 01/01/24 16:07 Temperature 98 F Temperature Source Pulse Rate 91 94 94 Pulse Strength Respiratory Rate 16 21 H 21 H Respiratory Effort Respiratory Depth Respiratory Pattern Blood Pressure 182/94 H 175/86 H 175/86 H Blood Pressure Mean 123 115 115 Blood Pressure Source Blood Pressure Position Blood Pressure Location Pulse Ox 98 97 97 Oxygen Delivery Method Room Air Oxygen Flow Rate (L/min) 01/01/24 16:30 01/01/24 17:03 01/01/24 18:05 Temperature 98.0 F Temperature Source Oral Pulse Rate 85 Pulse Strength Respiratory Rate 16 Respiratory Effort Normal Non-Labored Respiratory Depth Normal Respiratory Pattern Normal Blood Pressure 213/84 H Blood Pressure Mean 127 Blood Pressure Source Monitor Blood Pressure Position Semi-Fowlers Blood Pressure Location Left Arm Pulse Ox 99 97 Oxygen Delivery Method Room Air Room Air Room Air Oxygen Flow Rate (L/min) 01/01/24 21:00 01/01/24 22:00 01/01/24 22:00 Temperature 98.8 F Temperature Source Oral Pulse Rate 74 Pulse Strength Normal (2+) Respiratory Rate 16 Respiratory Effort Respiratory Depth Respiratory Pattern Blood Pressure 163/79 H Blood Pressure Mean 107 Blood Pressure Source Monitor Blood Pressure Position Semi-Fowlers Blood Pressure Location Left Arm Pulse Ox 98 98 Oxygen Delivery Method Room Air Room Air Oxygen Flow Rate (L/min) 01/01/24 22:00 01/01/24 23:40 01/01/24 23:48 Temperature 98.8 F Temperature Source Oral Pulse Rate 74 Pulse Strength Respiratory Rate 16 Respiratory Effort Respiratory Depth Respiratory Pattern Blood Pressure 137/72 H Blood Pressure Mean 93 Blood Pressure Source Monitor Blood Pressure Position Semi-Fowlers Blood Pressure Location Left Arm Pulse Ox 98 83 96 Oxygen Delivery Method Room Air Room Air Nasal Cannula Oxygen Flow Rate (L/min) 2 01/02/24 02:00 01/02/24 03:10 01/02/24 06:00 Temperature 97.2 F L 97.2 F L 97.8 F Temperature Source Temporal Temporal Temporal Pulse Rate 89 89 75 Pulse Strength Respiratory Rate 16 16 14 Respiratory Effort Respiratory Depth Respiratory Pattern Blood Pressure 134/70 H 134/70 H 134/70 H Blood Pressure Mean 91 91 91 Blood Pressure Source Monitor Monitor Monitor Blood Pressure Position Semi-Fowlers Semi-Fowlers Semi-Fowlers Blood Pressure Location Right Arm Right Arm Left Arm Pulse Ox 97 97 97 Oxygen Delivery Method Nasal Cannula Nasal Cannula Nasal Cannula Oxygen Flow Rate (L/min) 2 2 2 01/02/24 09:23 01/02/24 09:34 01/02/24 09:44 Temperature 98.5 F Temperature Source Oral Pulse Rate 82 Pulse Strength Normal (2+) Respiratory Rate 18 Respiratory Effort Normal Non-Labored Respiratory Depth Normal Respiratory Pattern Normal Blood Pressure 134/65 H Blood Pressure Mean 88 Blood Pressure Source Monitor Blood Pressure Position Semi-Fowlers Blood Pressure Location Right Arm Pulse Ox 95 95 Oxygen Delivery Method Room Air Room Air Oxygen Flow Rate (L/min) Weight Weight: 87.6 kg Body Mass Index (BMI) 33.0 EEG Results Procedure Details EEG Procedure Details: RICHARDSON CRUM is a 73 year old F with a past medical history of , who presents for evaluation of Electroencephalogram on DATE at TIME NIHSS NIHSS Nursing Documentation NIHSS Nursing Documentation: NIHSS: Ischemic Stroke/TIA Start: 01/01/24 16:21 Text: For PCU Patients: NIH and Neuro Check every 4 Status: Active hours, PRN and with change in RN caregiver. Freq: [id number] Protocol: Activity Type Activity Date Activity User E-sign Co-sign Detail Recorded Client Recorded Date Recorded By Document 01/02/24 09:24 HS Desktop 01/02/24 09:24 HS 01/02/24 09:24 NIH Stroke Scale [NIHSS] A score of 0 is normal or asymptomatic . Total possible score is 42. Inpatient: RN or Physician to activate a stroke alert for onset of new stroke symptoms or with NIHSS increase >/= 3 points. Following change in neurological status, NIHSS will be performed per physician order or more frequently PRN. -1a. Level of Consciousness Alert; keenly responsive -1b. LOC Questions Answers BOTH questions correctly. -1c. LOC Commands Performs both tasks correctly . -2. Best Gaze Normal -3. Visual No visual loss -4. Facial Palsy Minor paralysis (flattened nasolabial fold , asymmetry on smiling) -5a. Left Arm No drift; arm holds 90 (or 45 ) degrees for full 10 seconds -5b. Right Arm No drift; arm holds 90 (or 45 ) degrees for full 10 seconds -6a. Left Leg No drift; leg holds 30-degree position for full 5 seconds -6b. Right Leg No drift; leg holds 30-degree position for full 5 seconds -7. Limb Ataxia Absent -8. Sensory Normal; no sensory loss -9. Best Language No aphasia; normal -10. Dysarthria Mild-to- moderate dysarthria; -11. Extinction and Inattention No abnormality -Total 2 Query Text:A score of 0 is normal or asymptomatic. Total possible score is 42 . ED: Notify Physician for NIHSS increase by > / = 3 points. Inpatient: RN or Physician to activate a stroke alert for NIHSS increase of > / = 3 points. Coma Scale [Assess] -Eye Opening Spontaneous -Motor Obeys Commands -Verbal Oriented [Total] -Coma Scale Total 15 NIHSS 1a. Level of Consciousness: Alert; keenly responsive 1b. LOC Questions: Answers BOTH questions correctly. 1c. LOC Commands: Performs both tasks correctly. 2. Best Gaze: Normal 3. Visual: No visual loss 4. Facial Palsy: Normal symmetrical movements 5a. Left Arm: No drift; arm holds 90 (or 45) degrees for full 10 seconds 5b. Right Arm: No drift; arm holds 90 (or 45) degrees for full 10 seconds 6a. Left Leg: No drift; leg holds 30-degree position for full 5 seconds 6b. Right Leg: No drift; leg holds 30-degree position for full 5 seconds 7. Limb Ataxia: Absent 8. Sensory: Normal; no sensory loss 9. Best Language: No aphasia; normal 10. Dysarthria: Normal 11. Extinction and Inattention: No abnormality Total: 0 Physical Exam Const General Appearance: cooperative Orientation / Consciousness: awake, oriented to person, oriented to place and oriented to time HEENT normocephalic Eyes General Eye: normal appearance of both eyes Neck full ROM Resp Effort and Inspection: able to speak in complete sentences Neuro oriented x3, CN's II-XII intact bilaterally, moves all extremities, no focal motor deficits and no sensory deficits noted Sensorium / Orientation: awake, alert, oriented to person, oriented to place and oriented to time Lab / Micro Data 01/02/24 03:20 01/02/24 03:20 Labs: Laboratory Results - last 24 hr 01/01/24 12:45: WBC 6.8, RBC 4.53, Hgb 11.4 L, Hct 35.2 L, MCV 77.7 L, MCH 25.2 L, MCHC 32.4, RDW Std Deviation 44.7 H, RDW Coeff of Manuel 16.1 H, Plt Count 233, MPV 12.9 H, Immature Gran % (Auto) 1.300 H, Neut % (Auto) 71.4 H, Lymph % (Auto) 18.8 L, [place] % (Auto) 8.1, Eos % (Auto) 0.1, Baso % (Auto) 0.3, Absolute Neuts (auto) 4.9, Absolute Lymphs (auto) 1.28, Nucleated RBC % 0, Sodium 140, Potassium 3.0 L, Chloride 106, Carbon Dioxide 22.0, Anion Gap 12, BUN 16, Creatinine 0.79, Estim Creat Clear Calc 69.34, Est GFR (MDRD) Af Amer 92, Est GFR (MDRD) Non-Af 76, BUN/Creatinine Ratio 20.3 H, Glucose 123 H, Lactic Acid 1.3, Calcium 8.8, Phosphorus 1.3 L, Total Bilirubin 0.80, AST 24, ALT 31, Alkaline Phosphatase 201 H, Troponin I High Sens 13, Total Protein 6.6, Albumin 3.2, Globulin 3.4, Albumin/Globulin Ratio 0.9, Lipase 31, Ethyl Alcohol 4.0 01/01/24 12:55: Urine Color Yellow, Urine Clarity Sl. Cloudy, Urine pH 6.5, Ur Specific [place] 1.015, Urine Protein 30 H, Urine Glucose (UA) Normal, Urine Ketones 150 A*, Urine Occult Blood Negative, Urine Nitrite Negative, Urine Bilirubin Negative, Urine Urobilinogen 1 H, Ur Leukocyte Esterase Negative, Urine RBC 0 SEEN, Urine WBC 0 SEEN, Ur Squamous Epith Cells 0-5 SEEN, Urine Bacteria 0 SEEN, Urine Mucus 0 SEEN, Urine Opiates Screen NEGATIVE, Urine Methadone Screen POSITIVE H, Ur Barbiturates Screen NEGATIVE, Ur Phencyclidine Scrn NEGATIVE, Ur Amphetamines Screen NEGATIVE, MDMA (Ecstasy) Screen NEGATIVE, U Benzodiazepines Scrn NEGATIVE, Urine Cocaine Screen NEGATIVE, U Cannabinoids Screen NEGATIVE, Ur Drug Screen Comment 01/01/24 16:00: Potassium 3.1 L, Hemoglobin A1c 5.5, Folate 34.90, TSH 0.33 L 01/01/24 21:00: Ammonia < 10.0 L 01/01/24 22:17: POC Glucose 109 H 04/29/24 03:20: WBC 6.6, RBC 4.08 L, Hgb 10.0 L, Hct 32.4 L, MCV 79.4 L, MCH 24.5 L, MCHC 30.9 L, RDW Std Deviation 46.6 H, RDW Coeff of Manuel 16.4 H, Plt Count 221, MPV 12.2 H, Immature Gran % (Auto) 1.100 H, Neut % (Auto) 59.0, Lymph % (Auto) 27.1, [place] % (Auto) 11.7 H, Eos % (Auto) 0.6, Baso % (Auto) 0.5, Absolute Neuts (auto) 3.9, Absolute Lymphs (auto) 1.78, Nucleated RBC % 0, Sodium 142, Potassium 3.9, Chloride 112 H, Carbon Dioxide 23.0, Anion Gap 7, BUN 16, Creatinine 0.72, Estim Creat Clear Calc 68.10, Est GFR (MDRD) Af Amer 102, Est GFR (MDRD) Non-Af 84, BUN/Creatinine Ratio 22.1 H, Glucose 96, Calcium 8.3 L, Phosphorus 3.4, Magnesium 2.0, Total Bilirubin 0.60, AST 22, ALT 25, Alkaline Phosphatase 166 H, Total Protein 5.5 L, Albumin 2.6 L, Globulin 2.9, Albumin/Globulin Ratio 0.9, Triglycerides 72, Cholesterol 157, LDL Cholesterol 88, VLDL Cholesterol 14, HDL Cholesterol 55, Vitamin B12 221 ABG Data ABG results: ABG 01/01/24 01/01/24 12:49 21:03 Specimen Type ART KUSH Sample Site L Radial Not entered pH 7.66 H* Bicarbonate Actual 20.8 L Total CO2 21 Base Excess 0 O2 Saturation 99 ABG pCO2 18.6 L* ABG pO2 85 VBG pH 7.45 H VBG pO2 52 H VBG HCO3 21 L VBG Total CO2 22 L VBG O2 Sat (Calc) 89 H VBG Base Excess -3 L POC Mix VBG pCO2 Pt Tmp 29.5 L O2 Delivery Device Room Air Room Air Vent Mode Not entered Crit Call To/Read Back Yes Blood Gas Notified Whom bb Blood Gas Notified Time 12:51:15 Rhythm Strip Rhythm Strip: Sinus Rhythm Rate: 95 Ectopy: None Imaging Radiology Impression Abdomen/Pelvis CT 01/01/24 12:27 IMPRESSION: No acute abdominal or pelvic abnormality. Electronically Signed: Raman See MD at 14:20 EDT , Brain CT 01/01/24 12:27 IMPRESSION: Chronic involutional changes of the brain. Electronically Signed: Miguel Hewitt MD at 14:26 EDT , Chest X-Ray 01/01/24 13:44 IMPRESSION: No acute process Electronically Signed: Miguel Hewitt MD at 14:11 EDT , Hip/Pelvis X-Ray 01/01/24 13:44 IMPRESSION: 1. No demonstrated fracture of the pelvis and bilateral hips. Electronically Signed: Miguel Hewitt MD at 14:25 EDT , Active Medications Active Medications Active Medications: Current Medications Generic Name Dose Route Start Last Admin Trade Name Freq PRN Reason Stop Dose Admin Acetaminophen 650 mg 01/01/24 16:21 Acetaminophen 325 Mg Tablet PO Q4H PRN PRN Pain 1-10 Or Fever>99.6 Atorvastatin Calcium 40 mg 01/01/24 22:00 01/01/24 21:21 Atorvastatin Calcium 40 Mg Tablet PO 40 mg QHS CASSANDRA Administration Buspirone HCl 5 mg 01/01/24 22:00 01/02/24 06:06 Buspirone 5 Mg Tablet PO 5 mg TID CASSANDRA Administration Cyclobenzaprine HCl 10 mg 01/01/24 22:00 01/02/24 06:06 Cyclobenzaprine Hcl 10 Mg Tablet PO 10 mg TID CASSANDRA Administration Heparin Sodium (Beef Lung) 50 units 01/01/24 16:33 Heparin Pf Lock 10 Units/Ml 50 Units/5 Ml Syringe IV UD PRN Port-a-Cath (VAD)Heparin Flush Sodium Chloride 250 mls @ 15 mls/hr 01/01/24 16:33 IV .[id number] PRN Additional IVPB Infusion Sodium Chloride 250 mls @ 15 mls/hr 01/01/24 16:33 IV .[id number] PRN Saline Flush Labetalol HCl 10 mg 01/01/24 21:13 Labetalol (Prefilled) 20 Mg/4 Ml IV Q4H PRN PRN SBP GREATER THAN 170 Protocol Ondansetron HCl 4 mg 01/01/24 17:38 01/01/24 23:27 Ondansetron 4 Mg/2 Ml Vial IV 4 mg Q6H PRN PRN Administration NAUSEA Potassium Chloride 40 meq 01/01/24 16:21 01/02/24 09:25 Potassium Chloride Oral Tablet 20 Meq PO 40 meq DAILY CASSANDRA Administration Pregabalin 200 mg 01/01/24 22:00 01/02/24 06:08 Pregabalin 50 Mg Capsule PO 200 mg TID CASSANDRA Administration Quetiapine Fumarate 100 mg 01/01/24 22:00 01/01/24 21:19 Quetiapine 100 Mg Tablet PO 100 mg QHS CASSANDRA Administration Protocol Rivaroxaban 20 mg 01/01/24 17:00 01/01/24 21:19 Rivaroxaban 20 Mg Tablet PO 20 mg DINNER CASSANDRA Administration Sodium Chloride 10 - 40 ml 01/01/24 16:33 01/02/24 06:09 0.9 % Nacl (Sterile) Posiflush 10 Ml IV 20 ml UD PRN Administration Port access or dressing change Sodium Chloride 10 - 40 ml 01/01/24 16:33 01/01/24 21:29 0.9% Saline Lock 10 Ml Syringe IV 20 ml UD PRN Administration Port-a-Cath (VAD) Flush Venlafaxine HCl 150 mg 01/02/24 10:00 01/02/24 09:25 Venlafaxine Xr 150 Mg Capsule PO 150 mg DAILY CASSANDRA Administration
--- NOTE | 2024-01-02 13:22 | CASEMGMT ---
Discharge Planning A list of?SNF providers including quality and resource use data and consistent with the patient's preferred geographic region, medical needs, and insurance network was created in [facility].? This list was provided to the SW. Maris Baker Discharge Planning Asst.
--- NOTE | 2024-01-02 13:32 | PN_ITS ---
Subjective Subjective Patient seen and examined. She was alert and oriented x 3 but when asked what made her come to the hospital, she said she was living in the [facility] and asked a man to come and paint her. She then became tearful. She was able to answer questions about review of systems and denied any fever, chills, palpitations, dizziness, nausea, vomiting or any other symptoms. Review of systems is otherwise negative. Objective Data Objective Data Vital Signs: Vital Signs Temp Pulse Resp BP Pulse Ox O2 Del Method O2 Flow Rate 97.9 F 102 H 16 127/72 H 96 Room Air 2 01/02/24 13:20 01/02/24 13:20 01/02/24 13:20 01/02/24 13:20 01/02/24 13:20 01/02/24 13:20 01/02/24 06:00 Oxygen Flow Rate (L/min) 2 Oxygen Delivery Method Room Air Weight: 193 lb 1.999 oz Body Mass Index (BMI) 33.0 Intake & Output: Intake and Output for Last 24 Hours 12/31/23 01/01/24 01/02/24 23:59 23:59 23:59 Intake Total 1200.83 / 1200.83 Output Total 100 / 300 350 / 350 Balance -100 / -200 850.83 / 850.83 Lab / Micro Data 01/02/24 03:20 01/02/24 03:20 Labs: Laboratory Results - last 24 hr 01/01/24 12:45: Phosphorus 1.3 L 01/01/24 16:00: Potassium 3.1 L, Hemoglobin A1c 5.5, Folate 34.90, TSH 0.33 L 01/01/24 21:00: Ammonia < 10.0 L 01/01/24 22:17: POC Glucose 109 H 01/02/24 03:20: WBC 6.6, RBC 4.08 L, Hgb 10.0 L, Hct 32.4 L, MCV 79.4 L, MCH 24.5 L, MCHC 30.9 L, RDW Std Deviation 46.6 H, RDW Coeff of Manuel 16.4 H, Plt Count 221, MPV 12.2 H, Immature Gran % (Auto) 1.100 H, Neut % (Auto) 59.0, Lymph % (Auto) 27.1, [place] % (Auto) 11.7 H, Eos % (Auto) 0.6, Baso % (Auto) 0.5, Ab solute Neuts (auto) 3.9, Absolute Lymphs (auto) 1.78, Nucleated RBC % 0, Sodium 142, Potassium 3.9, Chloride 112 H, Carbon Dioxide 23.0, Anion Gap 7, BUN 16, Creatinine 0.72, Estim Creat Clear Calc 68.10, Est GFR (MDRD) Af Amer 102, Est GFR (MDRD) Non-Af 84, BUN/Creatinine Ratio 22.1 H, Glucose 96, Calcium 8.3 L, Phosphorus 3.4, Magnesium 2.0, Total Bilirubin 0.60, AST 22, ALT 25, Alkaline Phosphatase 166 H, Total Protein 5.5 L, Albumin 2.6 L, Globulin 2.9, Albumin/Globulin Ratio 0.9, Triglycerides 72, Cholesterol 157, LDL Cholesterol 88, VLDL Cholesterol 14, HDL Cholesterol 55, Vitamin B12 221 ABG Data ABG results: ABG 01/01/24 21:03 Specimen Type KUSH Sample Site Not entered VBG pH 7.45 H VBG pO2 52 H VBG HCO3 21 L VBG Total CO2 22 L VBG O2 Sat (Calc) 89 H VBG Base Excess -3 L POC Mix VBG pCO2 Pt Tmp 29.5 L O2 Delivery Device Room Air Radiography Diagnostic Testing: Radiology Impression Abdomen/Pelvis CT 01/01/24 12:27 IMPRESSION: No acute abdominal or pelvic abnormality. Electronically Signed: Raman See MD at 14:20 EDT , Brain CT 01/01/24 12:27 IMPRESSION: Chronic involutional changes of the brain. Electronically Signed: Miguel Hewitt MD at 14:26 EDT , Chest X-Ray 01/01/24 13:44 IMPRESSION: No acute process Electronically Signed: Miguel Hewitt MD at 14:11 EDT , Hip/Pelvis X-Ray 01/01/24 13:44 IMPRESSION: 1. No demonstrated fracture of the pelvis and bilateral hips. Electronically Signed: Miguel Hewitt MD at 14:25 EDT , Rhythm Strip Rhythm Strip: Sinus Rhythm Rate: 95 Ectopy: None Physical Exam Const alert Constitutional Narrative: tearful, confused General Appearance: cooperative Orientation / Consciousness: confused HEENT normocephalic, head/scalp atraumatic, moist oral mucous membranes and oropharynx normal Eyes PERRL and EOMs intact bilaterally Neck no lymphadenopathy and supple Lymph Lymphatic: no lymphadenopathy noted and no lymphedema noted Resp normal respiratory effort, normal air movement and clear to auscultation bilaterally Cardio regular rate, regular rhythm, S1 normal heart sound, S2 normal heart sound and no murmurs GI normal to inspection, nondistended, normoactive bowel sounds, soft to palpation, non-tender and non-distended Extremity normal capillary refill, no clubbing, cyanosis or edema and no calf tenderness General Extremity: no tenderness to palpation of joints or extremities Skin General Skin Exam: no breakdown Neuro CN's II-XII intact bilaterally, no focal motor deficits, no sensory deficits noted and deep tendon reflexes 2+ bilaterally Motor Exam: strength 5/5 throughout and general weakness Psych cooperative Appearance: appropriate Assessment & Plan Assessment/Plan (1) Acute encephalopathy: PLAN: Plan #Altered mental status * is alert and oriented x 3, but is confused about what made her come to the hospital * CT of hte brain showed no acute intracranial pathology * MRI of the brain pending * neurology reviewed patient and thinks that it is likely due to hypertensive encephalopathy. * PT/OT on board * urine tox was positive for methadone. COncern is whether this can also be contributiing to her altered mental status * TSH and vitamin B12 as well as folic acid level pending. * #Respiratory alkalosis * on admission, ABG showed pH of 7.66 wihth pCO2 of 18.6 an pO2 of 85. etiology is unclear. Stable. Will monitor * # Hypokalemia: Replace and trend. #Depression and anxiety. Anxiety and depression meds on hold due to patient's confusion. #Obesity: BMI is 33. Complicates acute care, expected recovery and prognosis #Restless leg syndrome: on requip #History of cirrhosis: stable. Ammonia level is not elevated. DVT prophylaxis: on arelto # Charges/Coding Visit Charges Inpatient E&M: 40926 Subs Hosp L2
--- NOTE | 2024-01-02 14:26 | CASEMGMT ---
Met with?patient to complete [employer] form. [place] form explained to patient who voiced understanding and signed form. Original form placed in pt?s chart and copy provided to?patient. Maris Baker, Discharge Planning Asst
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
--- NOTE | 2024-01-02 15:45 | MRI_ITS ---
EXAM: MR HEAD WITHOUT INTRAVENOUS CONTRAST CLINICAL INDICATION: Please evaluate for possible CVA. TECHNIQUE: Multiplanar and multisequence MR images of the brain were obtained without intravenous contrast. COMPARISON: CT head without contrast 01/01/2024. FINDINGS: BRAIN AND EXTRA-AXIAL SPACES: Unremarkable. No intra- or extra-axial hemorrhage. No evidence of acute infarct. No intracranial mass or mass effect. There is preservation of the kwong/white matter interface. Posterior fossa structures are unremarkable. Ventricles are appropriate for age. No hydrocephalus. Basal cisterns are patent. SELLA: Unremarkable. Normal sella turcica, pituitary gland, infundibular stalk, optic chiasm and hypothalamus. AUDITORY SYSTEM: Unremarkable. The internal auditory canals are patent. BONES/JOINTS: Unremarkable. No discrete lytic or blastic abnormalities. SINUSES: Unremarkable as visualized. Clear. MASTOID AIR CELLS: Unremarkable as visualized. Clear. ORBITS: Unremarkable as visualized. Both globes, extraocular muscles, optic nerves and retrobulbar fat appear unremarkable. VASCULATURE: Unremarkable as visualized. Normal flow voids in the major intracranial circulation. MRI/Brain without Contrast IMPRESSION: Negative MRI brain without intravenous contrast. Electronically Signed: Cornelius Vasquez MD at 11:33 EDT ,
[2024-01-02] MEDS: Rivaroxaban 20 MG Tablet PO (16:10)
[2024-01-02] MEDS: Atorvastatin Calcium 40 MG Tablet PO (20:21)
[2024-01-02] MEDS: QUEtiapine 100 MG Tablet PO (20:21)
[2024-01-03 03:00] VITALS: BP 108/59; PULSE 68; RESP 16; TEMP 35.9; O2SAT 95
[2024-01-03] MEDS: cycloBENZAPRine HCl 10 MG Tablet PO ×2 (05:40→14:05)
[2024-01-03] MEDS: busPIRone 5 MG Tablet PO ×2 (05:40→14:05)
[2024-01-03] MEDS: Pregabalin 50 MG Capsule 200 MG PO ×2 (05:40→14:05)
[2024-01-03] MEDS: 0.9 % NaCl (Sterile) Posiflush 10 mL IV (06:43)
[2024-01-03 06:54] LABS: Absolute Lymphocyte Count 2.26 X10^3/uL (0.83-4.51); Absolute Neutrophil Count 2.8 X10^3/uL (2.0-7.7); Basophil# 0.05 X10^3/uL; Basophil% 0.8 % (0-1); Eosinophil# 0.03 X10^3/uL; Eosinophils% 0.5 % (0-5); Hematocrit 34.9 % (37-47); Hemoglobin 10.6 g/dL (12.0-15.0); Lymphocyte # 2.26 X10^3/ul (0.83-4.51); Lymphocyte % 37.3 % (19-41); Mean Corp Hgb Conc 30.4 g/dL (32-36); Mean Corpuscular Hgb 24.7 pg (27.0-32.0); Mean Corpuscular Volume 81.2 fL (81-99); Mean Platelet Vol. 12.7 fl (6.2-12.0); Monocyte# 0.75 X10^3/uL; Monocyte% 12.4 % (0-10); NRBC Flagged by Analyzer 0 % (0-5); Neutrophil # 2.76 X10^3/uL (2.7-7.7); Neutrophil % 45.5 % (47-70); Platelet Count 226 K/mm3 (150-450); RBC Distribution Width CV 17.1 % (11.6-14.6); RBC Distribution Width SD 49.5 fl (35.1-43.9); White Blood Count 6.1 K/mm3 (4.4-11.0)
[2024-01-03 07:50] VITALS: O2SAT 90
[2024-01-03 07:56] VITALS: BP 103/61; PULSE 64; RESP 16; TEMP 36.4; O2SAT 95
[2024-01-03] MEDS: Venlafaxine XR 150 MG Capsule PO (08:01)
[2024-01-03] MEDS: Potassium Chloride Oral Tablet 20 MEQ 40 MEQ PO (08:01)
[2024-01-03 08:11] LABS: Anion Gap 5 (5-15); BUN 16 mg/dL (7-18); BUN/Creat Ratio 14.5 RATIO (10-20); Calcium,Total 8.4 mg/dL (8.5-10.1); Chloride 111 mmol/L (98-107); EST Glomerular Filtration Rate 52 mL/min (>60); Est Glom Filt Rate - Afr Amer 63 mL/min (>60); Estimated Creatinine Clearance 49.52 ml/min; Glucose 109 mg/dL (74-106); Potassium 3.8 mmol/L (3.5-5.1); Sodium Level 140 mmol/L (136-145)
[2024-01-03 11:05] VITALS: BP 108/61; PULSE 73; RESP 16; TEMP 36.8; O2SAT 95
--- NOTE | 2024-01-03 11:12 | PN.NEURO_ITS ---
Objective Data Objective Data Vital Signs: Vital Signs Temp Pulse Resp BP Pulse Ox O2 Del Method O2 Flow Rate 98.2 F 73 16 108/61 95 Room Air 2 01/03/24 11:05 01/03/24 11:05 01/03/24 11:05 01/03/24 11:05 01/03/24 11:05 01/03/24 11:05 01/02/24 06:00 Oxygen Flow Rate (L/min) 2 Oxygen Delivery Method Room Air Weight: 87.6 kg Body Mass Index (BMI) 33.0 Intake & Output: Intake and Output for Last 24 Hours 01/01/24 01/02/24 01/03/24 23:59 23:59 23:59 Intake Total 1600.83 / 1600.83 Output Total 100 / 300 350 / 350 200 / 200 Balance -100 / -200 1250.83 / 1250.83 -200 / -200 Lab / Micro Data 01/03/24 06:35 01/03/24 06:35 Labs: Laboratory Results - last 24 hr 01/03/24 06:35: WBC 6.1, RBC 4.30, Hgb 10.6 L, Hct 34.9 L, MCV 81.2, MCH 24.7 L, MCHC 30.4 L, RDW Std Deviation 49.5 H, RDW Coeff of Manuel 17.1 H, Plt Count 226, MPV 12.7 H, Immature Gran % (Auto) 3.500 H, Neut % (Auto) 45.5 L, Lymph % (Auto) 37.3, [place] % (Auto) 12.4 H, Eos % (Auto) 0.5, Baso % (Auto) 0.8, Absolute Neuts (auto) 2.8, Absolute Lymphs (auto) 2.26, Nucleated RBC % 0, Sodium 140, Potassium 3.8, Chloride 111 H, Carbon Dioxide 24.0, Anion Gap 5, BUN 16, Creatin ine 1.10 H, Estim Creat Clear Calc 49.52, Est GFR (MDRD) Af Amer 63, Est GFR (MDRD) Non-Af 52 L, BUN/Creatinine Ratio 14.5, Glucose 109 H, Calcium 8.4 L Radiography Diagnostic Testing: Radiology Impression Carotid Duplex 01/01/24 15:45 Interpretation Summary Normal right extracranial internal carotid. Normal left extracranial internal carotid. Patent and antegrade vertebrals bilaterally. Ordering Physician: Sukhdev Bianchi Referring Physician: Claire Christian Performed By: Eryn Kern, VIDAL, RVT Brain MRI 01/02/24 15:45 IMPRESSION: Negative MRI brain without intravenous contrast. Electronically Signed: Cornelius Vasquez MD at 11:33 EDT , Rhythm Strip Rhythm Strip: Sinus Rhythm Rate: 95 Ectopy: None Physical Exam Const Orientation / Consciousness: awake, oriented to person, oriented to place and oriented to time HEENT normocephalic Neuro oriented x3, CN's II-XII intact bilaterally and moves all extremities Neuro Narrative: awake, alert Coopertaive Cranial nerves intact No aphasia Motor: Moves all extremities Sensation intact No ataxia Subject: Neurology Subjective RICHARDSON CRUM is a 73 year old F, who we are seeing in consultation today for advice on the management of her altered mental status and r/o stroke. She denies any symptoms. Assessment and Plan: Stroke Assessment/Plan RICHARDSON CRUM is a 73 F with a history of obesity depression with anxiety, RLS, history of X; on Xarelto, history of cirrhosis, osteoarthritis; on chronic methadone and recent admission here approximately 5 days ago for treatment of pneumonia who presents to [facility] ER with altered mental status. she reports being confused for few days. Her BP was high upon presentation. She is getting better. Denies focal symptoms. Not a TNK or thrombectomy candidate. Neurological examination shows intact examination Neuroimaging shows No acute stroke . B12 is lower limits of normal. ammonia is normal, folate is normal, TSH: bordeline low Most likely had encephalopathy from hypertension. Plan Continue xarelto Aim normal blood pressure Continue medications for her mood disorder pre primary team. Aggressive supportive care. Thanks for the consult. I spent 25 min in evaluation and management.
[2024-01-03] MEDS: Acetaminophen 325 MG Tablet 650 MG PO (12:35)
[2024-01-03] MEDS: oxyCODONE 5 MG Tablet PO (12:35)
--- NOTE | 2024-01-03 12:56 | CON.PCM.SX_ITS ---
Assessment & Plan Assessment/Plan (1) Diastasis of rectus abdominis: PLAN: I was consulted for abdominal pain. I reviewed her CT scan from 2 days ago and there appears to be a tiny umbilical hernia. On physical exam the patient does have diastases and she said this is been bulging for months and hurting for months. I explained to her what diastases was. I explained that it usually does not cause abdominal pain. I offered her CT scan to reevaluate but she does not want one at this time. I think she really wanted explanation for the bulging in her abdomen and when she received that she seemed less painful and less concerned. Her white count is normal as long as she is tolerating regular diet I believe she can be discharged home and follow-up as needed. No surgical intervention planned for diastases. Stephan Hutchinson MD Pager: [facility] [address] [place] [address], [address] [place] [phone] Office: HPI Consult Data Date of Consult: 01/03/24 HPI Narrative HPI Narrative: RICHARDSON CRUM, is a 73 F who presented with TIA. Patient has been here for 2 days. They performed a CT of the abdomen pelvis 2 days ago on admission which was normal. She is been complaining of severe abdominal pain/consulted for abdominal pain. When I asked her where her pain is she described around the umbilicus. She said her abdomen has become more bloated and swollen over the last few months and this pain has been going on for months. She says she has been tolerating a diet and having normal bowel movements. [facility] Medical History Cirrhosis Migraines Medical History unable to obtain Home Medications buspirone 5 mg tablet 5 mg PO TID 01/01/24 [History Last Taken Unknown] cyclobenzaprine 10 mg tablet 10 mg PO TID 01/01/24 [History Last Taken Unknown] potassium chloride 20 mEq tablet,extended release(part/cryst) (Klor-Con M) 20 meq PO DAILY 01/01/24 [History Last Taken Unknown] pregabalin 200 mg capsule 200 mg PO TID 01/01/24 [History Last Taken Unknown] quetiapine 100 mg tablet 100 mg PO QHS 01/01/24 [History Last Taken Unknown] rivaroxaban 20 mg tablet (Xarelto) 20 mg PO DAILY 01/01/24 [History Last Taken Unknown] venlafaxine 150 mg capsule,extended release 24 hr 150 mg PO DAILY 01/01/24 [History Last Taken Unknown] Allergy/AdvReac Type Severity Reaction Status Date / Time No Known Allergies Allergy Verified 01/01/24 12:21 Social History housing: apartment Smoking Status: Never smoker ROS Constitutional Constitutional: Denies anorexia, chills or fatigue Eyes Eyes: Denies blurry vision Cardiovascular Cardiovascular: Denies chest pain Respiratory/Chest Respiratory/Chest: Denies cough or dyspnea Gastrointestinal Gastrointestinal: Reports abdominal pain; Denies diarrhea, dysphagia, hematemesis, nausea or vomiting Genitourinary Genitourinary: Denies change in urinary stream Neurologic Neurologic: Denies dizziness Psychiatric Psychiatric: Denies anxiety Physical Exam Const alert and oriented x3 Eyes PERRL Resp normal respiratory effort Cardio Rate: regular rate Rhythm: regular rhythm GI soft to palpation and non-distended GI Narrative: Patient has diastases recti. No palpable hernia defect at the umbilicus. Abdomen is soft and there are no peritoneal signs or tenderness with palpation. Lab / Micro Data 01/03/24 06:35 01/03/24 06:35 Labs: Laboratory Results - last 24 hr 01/03/24 06:35: WBC 6.1, RBC 4.30, Hgb 10.6 L, Hct 34.9 L, MCV 81.2, MCH 24.7 L, MCHC 30.4 L, RDW Std Deviation 49.5 H, RDW Coeff of Manuel 17.1 H, Plt Count 226, MPV 12.7 H, Immature Gran % (Auto) 3.500 H, Neut % (Auto) 45.5 L, Lymph % (Auto) 37.3, [place] % (Auto) 12.4 H, Eos % (Auto) 0.5, Baso % (Auto) 0.8, Absolute Neuts (auto) 2.8, Absolute Lymphs (auto) 2.26, Nucleated RBC % 0, Sodium 140, Potassium 3.8, Chloride 111 H, Carbon Dioxide 24.0, Anion Gap 5, BUN 16, Creatinine 1.10 H, Estim Creat Clear Calc 49.52, Est GFR (MDRD) Af Amer 63, Est GFR (MDRD) Non-Af 52 L, BUN/Creatinine Ratio 14.5, Glucose 109 H, Calcium 8.4 L Rhythm Strip Rhythm Strip: Sinus Rhythm Rate: 95 Ectopy: None Imaging Radiology Impression Carotid Duplex 01/01/24 15:45 Interpretation Summary Normal right extracranial internal carotid. Normal left extracranial internal carotid. Patent and antegrade vertebrals bilaterally. Ordering Physician: Sukhdev Bianchi Referring Physician: Claire Christian Performed By: Eryn Kern, FLAVIOCS, RVT Brain MRI 01/02/24 15:45 IMPRESSION: Negative MRI brain without intravenous contrast. Electronically Signed: Cornelius Vasquez MD at 11:33 EDT ,
--- NOTE | 2024-01-03 12:58 | CASEMGMT ---
SW talked with patient a little more and provided support. SW also provided patient with a list of counselors in the area that take her insurance. Patient was appreciative. Aleisha MORILLO
--- NOTE | 2024-01-03 14:21 | DCINST_ITS ---
Discharge Instructions Diet Discharge Diet: Low fat / Low cholesterol Activity Discharge Activity: Return to Normal Activity Weight Bearing Status: Weight bearing as tolerated Dressing / Incision Call your doctor if you observe: Fever of 101 or Higher, Shortness of breath, Dizziness, Swelling in the ankles, Chest pain and Increased palpitations (irregular heartbeat) Follow Up Care Test Results: Test results from this visit will be discussed in further detail at your follow- up appointment, if applicable. Discharge Plan Admission Admit Date/Time: 01/01/24 15:41 Primary Reason for Your Visit: altered mental status Attending Provider: Sommer Lang Primary Care Provider: Claire Christian Consulting Providers: Brian Mcdowell; Linda Aguiar; Vidhya Kuo; Jenna Yoder; Margarette Phillips; Abraham London; Smitha Wolf; Ronnell Haas; Rishabh Cox; Marion Ron ret; Jose Aguayo; Linda Wolf; Michelle Pastor; Ava Mckeon; Venkat Flores; Delmar Kim; Antoine Medeiros; Maryam Roland; Giovanny Benton; Sukhdev Bianchi; Stephan Hutchinson Instructions Patient Instructions: ED Confusion Discharge Orders/Prescriptions Prescriptions: Continued cyclobenzaprine 10 mg tablet 10 mg PO TID venlafaxine 150 mg capsule,extended release 24hr 150 mg PO DAILY quetiapine 100 mg tablet 100 mg PO QHS pregabalin 200 mg capsule 200 mg PO TID buspirone 5 mg tablet 5 mg PO TID Xarelto 20 mg tablet 20 mg PO DAILY Rx Instructions: must administer with evening meal potassium chloride [Klor-Con M20] 20 mEq tablet,ER particles/crystals 20 meq PO DAILY Referrals / Follow Up: Claire Christian, [employer] [Primary Care Provider] - Within 2 Weeks Disposition Disposition (needs filled in before D/C Order can be placed): Home, Self Care
--- NOTE | 2024-01-03 14:21 | DS.PCM_ITS ---
Providers Date of Admission: 01/01/24 Date of Discharge: 01/03/24 Primary Care Physician: Claire Christian, CLYDE-Victorina Consultations 01/01/24 16:21 Consult: Tele-Neurology Routine Consulting Provider: [facility] Reason for Consult: Acute Ischemic Stroke/TIA EMERGENT Consult: No MD Notified: Yes Date Notified: 01/01/24 Time Notified: 15:41 Method of Notification: Answering Service Method of Consult:: Telemedicine Nursing Unit Staff Notify [facility] of Tele-Neurology Consult: Yes 01/03/24 12:01 Consult: General Surgery Routine Consulting Provider: Stephan Hutchinson Reason for Consult: painful umbilical hernia EMERGENT Consult: No MD Notified: Yes Date Notified: 01/03/24 Time Notified: 12:01 Method of Notification: Text Reason For Visit: TIA VERSUS CVA Diagnosis Discharge Diagnosis (1) Diastasis of rectus abdominis: Status: Acute Code(s): M62.08 - Separation of muscle (nontraumatic), other site Plan #Altered mental status * is alert and oriented x 3, but is confused about what made her come to the hospital * CT of hte brain showed no acute intracranial pathology * MRI of the brain pending * neurology reviewed patient and thinks that it is likely due to hypertensive encephalopathy. * PT/OT on board * urine tox was positive for methadone. COncern is whether this can also be contributiing to her altered mental status * TSH and vitamin B12 as well as folic acid level pending. * #Respiratory alkalosis * on admission, ABG showed pH of 7.66 wihth pCO2 of 18.6 an pO2 of 85. etiology is unclear. Stable. Will monitor * # Hypokalemia: Replace and trend. #Depression and anxiety. Anxiety and depression meds on hold due to patient's confusion. #Obesity: BMI is 33. Complicates acute care, expected recovery and prognosis #Restless leg syndrome: on requip #History of cirrhosis: stable. Ammonia level is not elevated. DVT prophylaxis: on arelto # Medications at Discharge Home Medications buspirone 5 mg tablet 5 mg PO TID mental health 01/01/24 cyclobenzaprine 10 mg tablet 10 mg PO TID muscle spasm 01/01/24 potassium chloride 20 mEq tablet,extended release(part/cryst) (Klor-Con M) 20 meq PO DAILY supplement 01/01/24 pregabalin 200 mg capsule 200 mg PO TID nerve pain 01/01/24 quetiapine 100 mg tablet 100 mg PO QHS sleep 01/01/24 rivaroxaban 20 mg tablet (Xarelto) 20 mg PO DAILY blood thinner 01/01/24 venlafaxine 150 mg capsule,extended release 24 hr 150 mg PO DAILY mental health 01/01/24 Hospital Course Operations None Procedures 2-D Echocardiogram Summary of Care Provided Minutes Spent on Discharge: 55 Hospital Course: Patient is a 73-year-old female with a past medical history as outlined was admitted through the ED on 12/12/2023 with a complaint of confusion. She complained of pain but could not articulate where the pain was coming from. She had just recently been admitted about 5 days prior to this admission for pneumonia and subsequently discharged home. Due to her confusion at this time there was concern for TIA or CVA. On admission blood pressure was noted to be elevated and she was noted to be mildly dysarthric. Urine tox was positive for methadone. CT of the brain showed no evidence of stroke. She was admitted to be managed for acute encephalopathy to rule out a stroke. She had MRI of the brain which also showed no evidence of stroke. She had been complaining of abdominal pain so a CT of the abdomen and pelvis was done which was significant only for small fat-containing umbilical hernia. Neurology reviewed patient. Her MRI was negative. Per neurology has symptoms are likely due to possible hypertensive encephalopathy. Patient's blood pressure however subsequently normalized and she felt much better. Of note she had had metabolic alkalosis by ABG done on admission and this also resolved. She had hypokalemia with potassium of 3 and this subsequently resolved after potassium was replaced. Patient subsequently felt much better and refused placement as she wanted to go home. Due to episode and complaints about the abdominal pain which have been going on for several months, general surgery was consulted. General surgery reviewed patient and did not think that his symptoms were due to the umbilical hernia and likely due to diastases recti. Patient did not want to follow-up with general surgery on outpatient basis and opted to be discharged home. She was discharged on 01/03/2024 and is to follow-up with her primary care doctor within 1 to 2 weeks. Of note, patient's blood pressure came down to the normal range so she was not giving any BP meds on discharge. She is follow-up with her primary care doctor for decision to be made about whether to start BP meds based on blood pressure readings from home. Patient seen and examined prior to discharge. She had no active complaints and had an uneventful night. Review of systems otherwise negative. Labs and vitals reviewed. Home medication reviewed and reconciled. Physical Exam Const alert, oriented x3 and no apparent distress General Appearance: cooperative and comfortable Orientation / Consciousness: awake, confused and disoriented Exam Limitations: no limitations HEENT normocephalic, head/scalp atraumatic, hearing grossly normal bilaterally, moist oral mucous membranes and oropharynx normal Mouth: oral and palatal mucosa normal Eyes PERRL, EOMs intact bilaterally and conjunctivae normal Neck no lymphadenopathy, supple and no JVD Lymph Lymphatic: no lymphadenopathy noted and no lymphedema noted Resp normal respiratory effort, normal air movement, no retractions, no use of accessory muscles and clear to auscultation bilaterally Cardio regular rate, regular rhythm, S1 normal heart sound, S2 normal heart sound and no murmurs GI normal to inspection, nondistended, normoactive bowel sounds, soft to palpation, non-tender and non-distended Extremity normal to inspection, full ROM, normal capillary refill, no clubbing, cyanosis or edema and no calf tenderness General Extremity: no tenderness to palpation of joints or extremities Skin no rashes or lesions noted General Skin Exam: no breakdown Neuro oriented x3, CN's II-XII intact bilaterally, moves all extremities, no focal motor deficits, no sensory deficits noted and deep tendon reflexes 2+ bilaterally Sensorium / Orientation: awake and alert Motor Exam: strength 5/5 throughout and general weakness Psych cooperative Appearance: appropriate Weight / BMI Weight Weight: 193 lb 1.999 oz Body Mass Index (BMI) 33.0 ABG / Lab / Microbiology Data 01/03/24 06:35 01/03/24 06:35 Laboratory: Laboratory Results - last 24 hr 01/03/24 06:35: WBC 6.1, RBC 4.30, Hgb 10.6 L, Hct 34.9 L, MCV 81.2, MCH 24.7 L, MCHC 30.4 L, RDW Std Deviation 49.5 H, RDW Coeff of Manuel 17.1 H, Plt Count 226, MPV 12.7 H, Immature Gran % (Auto) 3.500 H, Neut % (Auto) 45.5 L, Lymph % (Auto) 37.3, [place] % (Auto) 12.4 H, Eos % (Auto) 0.5, Baso % (Auto) 0.8, Absolute Neuts (auto) 2.8, Absolute Lymphs (auto) 2.26, Nucleated RBC % 0, Sodium 140, Potassium 3.8, Chloride 111 H, Carbon Dioxide 24.0, Anion Gap 5, BUN 16, Creatinine 1.10 H, Estim Creat Clear Calc 49.52, Est GFR (MDRD) Af Amer 63, Est GFR (MDRD) Non-Af 52 L, BUN/Creatinine Ratio 14.5, Glucose 109 H, Calcium 8.4 L Radiography Diagnostic Testing: Radiology Impression Carotid Duplex 01/01/24 15:45 Interpretation Summary Normal right extracranial internal carotid. Normal left extracranial internal carotid. Patent and antegrade vertebrals bilaterally. Ordering Physician: Sukhdev Bianchi Referring Physician: Claire Christian Performed By: Eryn Kern RDCS, RVT Brain MRI 01/02/24 15:45 IMPRESSION: Negative MRI brain without intravenous contrast. Electronically Signed: Cornelius Vasquez MD at 11:33 EDT , D/C Instructions Discharge Diet: Low fat / Low cholesterol Discharge Activity: Return to Normal Activity Weight Bearing Status: Weight bearing as tolerated Call your doctor if you observe: Fever of 101 or Higher, Shortness of breath, Dizziness, Swelling in the ankles, Chest pain and Increased palpitations (irregular heartbeat) Meaningful Use Info Meaningful Use Meaningful Use Diagnoses (Choose all that apply): None applicable Ischemic Stroke Statin Dosing Therapy Reference: STATIN DOSE THERAPY REFERENCE: * Patients > 75 years receive moderate or high dose statin therapy. * Patients 75 years or YOUNGER should receive HIGH intensity statin dose unless contraindicated. You will be required to document reason for non-treatment if statin daily dose does not meet guidelines. HIGH DOSE STATIN THERAPY DAILY Atorvastatin > than or = to 40 mg Rosuvastatin > than or = to 20 mg Amlodipine + Atorvastatin > than or = to 2.5/40 mg Ezetimibe + Simvastatin 10/80 mg Simvastatin 80mg Discharge Plan Admission Admit Date/Time: 01/01/24 15:41 Primary Reason for Your Visit: altered mental status Attending Provider: Sommer Lang Primary Care Provider: Claire Christian Consulting Providers: Brian Mcdowell; Linda Aguiar; Vidhya Kuo; Jenna Yoedr; Margarette Phillips; Abraham London; Smitha Wolf; Ronnell Haas; Rishabh Cox; Gladys Ron; Jose Aguayo; Linda Wolf; Michelle Pastor; Ava Mckeon; Venkat Flores; Delmar Kim; Antoine Medeiros; Maryam Roland; Giovanny Benton; Sukhdev Bianchi; Stephan Hutchinson Instructions Patient Instructions: ED Confusion Discharge Orders/Prescriptions Prescriptions: Continued cyclobenzaprine 10 mg tablet 10 mg PO TID venlafaxine 150 mg capsule,extended release 24hr 150 mg PO DAILY quetiapine 100 mg tablet 100 mg PO QHS pregabalin 200 mg capsule 200 mg PO TID buspirone 5 mg tablet 5 mg PO TID Xarelto 20 mg tablet 20 mg PO DAILY Rx Instructions: must administer with evening meal potassium chloride [Klor-Con M20] 20 mEq tablet,ER particles/crystals 20 meq PO DAILY Referrals / Follow Up: Claire Christian, [employer] [Primary Care Provider] - Within 2 Weeks Disposition Disposition (needs filled in before D/C Order can be placed): Home, Self Care Charges/Coding Visit Charges Inpatient E&M: 26585 Disch Hosp >30min
--- NOTE | 2024-01-03 14:34 | CASEMGMT ---
DENNY WOODS updated by XAVIER that patient would like outpatient therapy at discharge. DENNY WOODS in to discuss outpatient therapy with patient. Patient states she prefers to schedule on her own therapy at center of her choice. Script received and provided to patient with [employer] information. Patient denied further needs or help at discharge. Patient had further questions or concerns at this time.
[2024-01-03 14:51] VITALS: BMI 33.0
--- NOTE | 2024-01-03 15:11 | PHA.DC.MR.R ---
[facility]arm[facility] Reconciliation Pharmacy Service has performed discharge medication reconciliation for this patient. The patient's discharge medication list was reviewed for discrepancies and discrepancies were resolved. Medications at Discharge Home Medications buspirone 5 mg tablet 5 mg PO TID mental health 01/01/24 cyclobenzaprine 10 mg tablet 10 mg PO TID muscle spasm 01/01/24 potassium chloride 20 mEq tablet,extended release(part/cryst) (Klor-Con M) 20 meq PO DAILY supplement 01/01/24 pregabalin 200 mg capsule 200 mg PO TID nerve pain 01/01/24 quetiapine 100 mg tablet 100 mg PO QHS sleep 01/01/24 rivaroxaban 20 mg tablet (Xarelto) 20 mg PO DAILY blood thinner 01/01/24 venlafaxine 150 mg capsule,extended release 24 hr 150 mg PO DAILY mental health 01/01/24
[2024-01-03] MEDS: 0.9% Saline Lock 10 ML Syringe IV (15:13)
[2024-01-03 15:20] VITALS: BP 113/80; PULSE 99; RESP 18; TEMP 36.9; O2SAT 96
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
== END 2024-01-03 14:20 | disposition home or self-care (01) ==
LOC: ED 15:30 → PCU 16:00
PROVIDERS: Admitting Provider Internal Medicine; Emergency Provider Emergency Medicine; PCP Nurse Practitioner Family; Visit Provider Student in an Organized Health Care Education/Training Program
DX: M62.08 Separation of muscle (nontraumatic), other site (principal); E87.6 Hypokalemia; E87.3 Alkalosis; G93.40 Encephalopathy, unspecified; Z79.899 Other long term (current) drug therapy; Z79.01 Long term (current) use of anticoagulants; E66.9 Obesity, unspecified; Z68.34 Body mass index [BMI] 34.0-34.9, adult; F41.9 Anxiety disorder, unspecified; F32.A Depression, unspecified; G25.81 Restless legs syndrome; K42.9 Umbilical hernia without obstruction or gangrene; M79.89 Other specified soft tissue disorders; R41.82 Altered mental status, unspecified; R47.89 Other speech disturbances; Z79.891 Long term (current) use of opiate analgesic; M19.90 Unspecified osteoarthritis, unspecified site; Z87.01 Personal history of pneumonia (recurrent); R03.0 Elevated blood-pressure reading, without diagnosis of hypertension; Z87.19 Personal history of other diseases of the digestive system; R52 Pain, unspecified
CPT/HCPCS: 36600; 70450; 70551; 71045; 73521; 74176; 80048; 80053; 80061; 80307; 80320; 81001; 82140; 82607; 82746; 82803; 82962; 83036; 83605; 83690; 83735; 84100; 84132; 84443; 84484; 85025; 92507; 92523; 93880; 94762; 96365; 96366; 96375; 96376; 97162; 97166; 97802; 99221; 99285; P9612; A4216; G0378; G0480; J2405